=== PATIENT | male | born 1995 ===

== ENCOUNTER 2018-09-14 22:25 | Emergency (ER) | payer SELFPAY ==
[2018-09-14 22:35] VITALS: BP 129/73; PULSE 81; RESP 18; TEMP 98.4; O2SAT 98
--- NOTE | 2018-09-14 23:01 | C.PDOC ---
History Of Present Illness 23 year old male with Hx of asthma presents with nasal congestion and cough for the past 5 days. Patient has been using his inhaler but symptoms persist. Denies fever, nausea, vomiting, or chest pain. Time Seen by Provider: 09/14/18 22:36 Chief Complaint (Nursing): Cough, Cold, Congestion History Per: Patient History/Exam Limitations: no limitations Onset/Duration Of Symptoms: Days (5) Current Symptoms Are (Timing): Still Present Location Of Pain: None Sick Contacts (Context): None Associated Symptoms: Cough, Nasal Congestion. denies: Fever, Nausea, Vomiting, Other (Chest pain) Recent travel outside of the [place]: No Past Medical History Reviewed: Historical Data, Nursing Documentation, Vital Signs Vital Signs: Last Vital Signs Temp 98.4 F 09/14/18 22:32 Pulse 81 09/14/18 22:32 Resp 18 09/14/18 22:32 BP 129/73 09/14/18 22:32 Pulse Ox 98 09/14/18 22:32 - Medical History PMH: Asthma Family History: States: No Known Family Hx - Social History Hx Alcohol Use: No Hx Substance Use: No - Immunization History Hx Tetanus Toxoid Vaccination: No Hx Influenza Vaccination: No Hx Pneumococcal Vaccination: No Review Of Systems Constitutional: Negative for: Fever, Chills Eyes: Negative for: Pain, Redness ENT: Positive for: Nose Congestion. Negative for: Mouth Swelling Cardiovascular: Negative for: Chest Pain, Palpitations Respiratory: Positive for: Cough. Negative for: Shortness of Breath Musculoskeletal: Negative for: Back Pain Skin: Negative for: Rash Neurological: Negative for: Weakness, Numbness Physical Exam - Physical Exam Appears: Well, Non-toxic, No Acute Distress Skin: Normal Color, Warm, No Rash Head: Atraumatic, Normacephalic Eye(s): bilateral: Normal Inspection, PERRL, EOMI Ear(s): Bilateral: Normal Nose: Other (Enlarged turbinates, mucosal edema) Oral Mucosa: Moist Throat: Normal (No swelling or injection), No Exudate, Other (Airway patent) Neck: Normal, Supple Chest: Symmetrical, No Tenderness Cardiovascular: Rhythm Regular Respiratory: Normal Breath Sounds, No Accessory Muscle Use, Other (Normal inspiratory effort) Neurological/Psych: Oriented x3, Normal Speech, Normal Cranial Nerves (Grossly intact) ED Course And Treatment O2 Sat by Pulse Oximetry: 98 (Room air) Pulse Ox Interpretation: Normal Medical Decision Making Medical Decision Making: Due to Hx of asthma and URI, will start patient on course of steroids and zyrtec d. 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 - Scribe Statement The provider has reviewed the documentation as recorded by the Scribe Jeb Mackenzie All medical record entries made by the Parulibadele were at my direction and personally dictated by me. I have reviewed the chart and agree that the record accurately reflects my personal performance of the history, physical exam, medical decision making, and the department course for this patient. I have also personally directed, reviewed, and agree with the discharge instructions and disposition.
== END 2018-09-14 23:15 | disposition home or self-care (01) ==
LOC: C.ER 22:25
DX: J06.9 Acute upper respiratory infection, unspecified (principal)

== ENCOUNTER 2018-10-07 20:13 | Emergency (ER) | payer SELFPAY ==
[2018-10-07 20:30] VITALS: BP 131/81; PULSE 79; RESP 20; TEMP 98.7; O2SAT 98
--- NOTE | 2018-10-07 21:40 | C.PDOC ---
History Of Present Illness The patient is a 23-year-old male who was evaluated in this ED on 09/14 for complaints of asthma exacerbation. Patient was discharged with prescription for steroid and albuterol inhaler. Patient states he has been using the inhaler, often multiple times per day, without significant improvement. Patient returns to the ED for re-evaluation after having an episode of shortness of breath while at work earlier today. Patient thinks his job environment may trigger his asthma. patient kristopheri reports pain to the front of his chest that is worse with cough and palpation. He denies fever, chills, nausea, vomiting, or recent travel. Time Seen by Provider: 10/07/18 20:32 Chief Complaint (Nursing): Cough, Cold, Congestion History Per: Patient History/Exam Limitations: no limitations Onset/Duration Of Symptoms: Hrs Current Symptoms Are (Timing): Still Present Associated Symptoms: denies: Fever Preciptating Factors: Exposure To: (work environment ) Additional History Per: Patient Past Medical History Reviewed: Historical Data, Nursing Documentation, Vital Signs Vital Signs: Last Vital Signs Temp 98.7 F 10/07/18 20:25 Pulse 79 10/07/18 20:25 Resp 20 10/07/18 20:25 BP 131/81 10/07/18 20:25 Pulse Ox 98 10/07/18 20:25 - Medical History PMH: Asthma Surgical History: No Surg Hx Family History: States: Unknown Family Hx - Social History Hx Alcohol Use: Yes Hx Substance Use: No - Immunization History Hx Tetanus Toxoid Vaccination: No Hx Influenza Vaccination: No Hx Pneumococcal Vaccination: No Review Of Systems Constitutional: Negative for: Fever, Chills, Weakness Cardiovascular: Positive for: Chest Pain Respiratory: Positive for: Other (asthma exacerbation ) Gastrointestinal: Negative for: Nausea, Vomiting, Abdominal Pain Skin: Negative for: Rash, Lesions, Jaundice, Bruising Neurological: Negative for: Weakness, Numbness Physical Exam - Physical Exam Appears: Well, Non-toxic, No Acute Distress Skin: Normal Color, Warm, No Rash Head: Atraumatic, Normacephalic Eye(s): bilateral: Normal Inspection (no scleral icterus ), PERRL, EOMI Ear(s): Bilateral: Normal (no drainage ) Nose: Normal Oral Mucosa: Moist Throat: Normal (no swelling or injection ), No Exudate, Other (airway patent ) Neck: Normal ROM, Supple Chest: Symmetrical, Tenderness (to sternum on palpation ) Respiratory: No Accessory Muscle Use, No Rales, No Rhonchi, No Wheezing, Other (good air movement ) Gastrointestinal/Abdominal: Soft, No Tenderness (epigastric ), No Distention, No Guarding, No Rebound Extremity: Normal ROM Extremity: Bilateral: Atraumatic Pulses: Left Radial: Normal, Right Radial: Normal Neurological/Psych: Oriented x3, Normal Cranial Nerves (grossly intact ) ED Course And Treatment O2 Sat by Pulse Oximetry: 98 (on RA) Pulse Ox Interpretation: Normal Medical Decision Making Medical Decision Making: Progress: CXR ordered and reviewed. Result show no evidence of obvious pneumonia or consolidation of mass. Prednisone PO given. On reassessment, patient is resting comfortably, showing no signs of respiratory distress and is stable for discharge. Patient will be prescribed steroid inhaler to use with albuterol inhaler and is advised to f/u with his PMD within 1-2 days for further evaluation. Disposition Counseled Patient/Family Regarding: Diagnosis, Need For Followup, Rx Given - Disposition Referrals: 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 - Scribe Statement The provider has reviewed the documentation as recorded by the Scribe (Carolyne Dunlap) All medical record entries made by the Scribe were at my direction and personally dictated by me. I have reviewed the chart and agree that the record accurately reflects my personal performance of the history, physical exam, medical decision making, and the department course for this patient. I have also personally directed, reviewed, and agree with the discharge instructions and disposition.
--- NOTE | 2018-10-08 07:40 | RAD ---
Date of service: 10/07/2018 HISTORY: pna COMPARISON: No prior. TECHNIQUE: Chest PA and lateral views FINDINGS: LUNGS: No consolidation. 2 to 3 mm nodular opacity left mid lung zone-prominent vessel on end versus benign granuloma failure. PLEURA: No significant pleural effusion identified. No pneumothorax apparent. CARDIOVASCULAR: No aortic atherosclerotic calcification present. Normal cardiac size. No pulmonary vascular congestion. OSSEOUS STRUCTURES: No significant abnormalities. VISUALIZED UPPER ABDOMEN: Normal. OTHER FINDINGS: None. IMPRESSION: No infiltrate. Other findings as above.
== END 2018-10-07 21:54 | disposition home or self-care (01) ==
LOC: C.ER 20:13
DX: J45.901 Unspecified asthma with (acute) exacerbation (principal); R07.1 Chest pain on breathing